=== PATIENT | male | born 1955 | race Caucasian/White ===

== ENCOUNTER 2017-07-19 07:15 | Outpatient (CLI) | payer MEDICARE ==
[~2017-07-19] VITALS: Ht 172.7 cm; Wt 74.1 kg
--- NOTE | ~2017-07-19 | HEMODYNAMI ---
PATIENT:DONTA STEARNS MEDICAL RECORD: [id number] : 53 LOCATION:[facility] ADMISSION DATE: 07/19/17 Generatedon:07/19/201714:04 Patient name: DONTA STEARNS Patient #: [id number] SSN: DO B: 1955 Date of study: 07/19/2017 Page: Of Hemodynamic Procedure Report Patient Data Patient Demographics Procedure consent was obtained First Name: DONTA Gender: Male Last Name: DARYN : 1955 Middle Initial: N Age: 62 year(s) Patient #: [id number] Race: Unknown Additional ID: [id number] Contact details [address]: [address] [place] [address] State: [place] City: [place] Zip code: [address] Past Medical History Allergies Allergen Reaction Date Comments Reported Sulfa drugs 07/19/2017 Admission Admission Data Admission Date: 07/19/2017 Admission Time: 7:15 Weight (lbs.): 163 Weight (kg.): 73.94 Procedure Procedure Types Cath Procedure Peripheral Cath Diagnostic Procedure Cath Peripheral 4-Vessel Subclavian Arteriogram Uni Procedure Description Procedure Date Procedure Date: 07/19/2017 Procedure Start Time: 12:21 Procedure Staff Name Function Lola Stringer RT Activities Aide Lola Stringer RT Monitor Reji Santana RT Scrub Adam Rucker MD Performing Physician Azalia Hills RN Nurse Procedure Data Cath Procedure Fluoroscopy Diagnostic fluoroscopy Total fluoroscopy Time: time: 13.7 min 13.7 min Diagnostic fluoroscopy Total fluoroscopy dose: 266 dose: 266 mGy mGy Contrast Material Contrast Material Type Amount (ml) Isovue 300 200 Entry Location Entry Primary Successful Side Size Upsize Upsize Entry Closure Succes sful Closure Location (Fr) 1 (Fr) 2 (Fr) Remarks Device Remarks Femoral Right 5 Fr artery Femoral Exoseal artery Diagnostic catheters Device Type Used For End Catheter Placement Merit UHF Pigtail VESSEL SIZING 5Fr 65CM catheter Merit Impress Chisholm 5Fr 125CM catheter Procedure Medications Medication Administration Route Dosage Lidocaine 1% added to field 20 Oxygen NC 2 l/min Heparin Flush Bag added to field 3 bags (1000units/500ml NS) Hemodynamics Rest Heart Rate: 73 (bpm) Snapshots Pre Cath Intra NCS Post Cath Vital Signs Time Heart Resp SPO2 NIBP (mmHg) Rhythm Pain Sedation Rate (ipm) (%) Status Level (bpm) 11:55:43 70 15 98 144/87(111) NSR 0 (11) 10(A) , No pain 11:59:55 71 17 99 129/86(114) NSR 0 (11) 10(A) , No pain 12:04:03 74 13 98 134/87(108) NSR 0 (11) 10(A) , No pain 12:08:15 72 18 98 138/87(112) NSR 0 (11) 10(A) , No pain 12:12:27 72 18 99 136/84(120) NSR 0 (11) 10(A) , No pain 12:17:08 79 21 99 140/89(116) NSR 0 (11) 10(A) , No pain 12:22:07 2 99 Measuring NSR 0 (11) 10(A) , No pain 12:22:23 84 2 99 136/93(128) NSR 0 (11) 10(A) , No pain 12:26:29 116 14 98 107/89(95) NSR 0 (11) 10(A) , No pain 12:30:31 77 10 97 126/81(97) NSR 0 (11) 10(A) , No pain 12:34:41 72 15 96 107/79(91) NSR 0 (11) 10(A) , No pain 12:38:46 77 5 97 108/65(78) NSR 0 (11) 10(A) , No pain 12:42:46 73 16 96 125/86(105) NSR 0 (11) 10(A) , No pain 12:46:52 79 18 96 118/84(96) NSR 0 (11) 10(A) , No pain 12:51:00 72 19 95 106/73(83) NSR 0 (11) 10(A) , No pain 12:55:03 73 13 95 110/71(84) NSR 0 (11) 10(A) , No pain 12:59:07 74 12 95 100/73(83) NSR 0 (11) 10(A) , No pain 13:03:09 79 17 96 93/74(82) NSR 0 (11) 10(A) , No pain 13:07:06 73 14 96 97/74(90) NSR 0 (11) 10(A) , No pain 13:11:04 74 14 96 111/79(100) NSR 0 (11) 10(A) , No pain 13:15:04 96 116/92(101) NSR 0 (11) 10(A) , No pain 13:19:59 73 98 176/98(148) NSR 0 (11) 10(A) , No pain 13:24:23 81 99 168/89(134) NSR 0 (11) 10(A) , No pain 13:28:41 114 98 168/95(148) NSR 0 (11) 10(A) , No pain 13:33:03 79 25 99 176/87(136) NSR 0 (11) 10(A) , No pain 13:37:27 67 13 100 175/93(121) NSR 0 (11) 10(A) , No pain 13:41:50 68 20 97 169/97(120) NSR 0 (11) 10(A) , No pain Medications Time Medication Route Dose Verified Delivered Reason Notes Effec tiveness by by 11:56:24 Lidocaine 1% added 20ml Azalia Medina used for to vial Reinier Rucker MD procedure field RN 11:56:48 Oxygen NC 2 Azalia Azalia used for l/min Reinier Hills RN [employer] business intelligence developer 11:57:10 Heparin Flush added 3bags Azalia Medina used for Bag to Reinier Rucker MD procedure (1000units/500ml field RN NS) Procedure Log Time Note 11:37:31 Use device set IR Diagnostic 11:45:14 Time tracking: Regular hours 11:46:16 Plan of Care:Hemodynamics will remain stable., Cardiac rhythm will remain stable., Comfort level will be maintained., Respiratory function will remain adequate., Patient/ family verbilizes understanding of procedure., Procedure tolerated without complication., Recovers from procedure without complications.. 11:47:07 Patient received from Outpatients to IR Alert and oriented. Tansferred to table in Supine position. 11:47:08 Correct patient and procedure confirmed by team. 11:47:11 Signed procedure consent form obtained from patient. 11:47:22 H&P Date Dictated: 07/19/2017 Within 30 days and on chart.. 11:47:24 Pre-procedure instructions explained to patient. 11:47:25 Pre-op teaching completed and patient verbalized understanding. 11:47:29 Family in patients room. 11:47:32 Patient NPO since Midnight. 11:47:46 Patient allergic to Sulfa drugs 11:47:52 Is the patient allergic to Iodine/contrast media? No. 11:47:55 Is patient on blood thinner?Yes 11:47:58 Patient diabetic? No. 11:48:00 - 11:48:01 ----Pre-sedation anethsthesia assessment.---- 11:48:06 Previous problem with sedation/anesthesia? No ? 11:48:08 Snore? Yes 11:48:11 Sleep apnea? No 11:48:13 Deviated septum? No 11:48:16 Opens mouth fully? Yes 11:48:18 Sticks out tongue? Yes 11:48:23 Airway obstruction? Yes copd 11:48:28 Dentures? No ? 11:48:31 - 11:54:37 ECG and BP/O2 sat monitors applied to patient. 11:54:38 Vital chart was started 11:54:38 Baseline sample Acquired. 11:54:39 Full Disclosure recording started 11:54:40 - 11:54:54 IV patent on arrival in right wrist with 0.9% NaCl at KVO. 11:55:02 Right groin area was prepped with chlora-prep and draped in sterile fashion 11:55:04 Alarms reviewed by Khushboo Mena 11:55:05 Sharps counted by scrub and verified by RNaniNNani 11:55:06 - 11:55:19 Ba RÍOS .035 guide wire opened to sterile field. 11:55:20 Terumo 5Fr Waurika Sheath opened to sterile field. 11:55:20 Micropuncture VSI 4FR kit opened to sterile field. 11:55:21 TUBING, CONTRAST INJCTN HI PRES opened to sterile field. 11:55:22 Sterile Angiographic Pack opened to sterile field. 11:55:23 Bag Decanter opened to sterile field. 11:55:24 Acist Manifold opened to sterile field. 11:55:25 Acist Hand Control opened to sterile field. 11:55:26 Acist Syringe opened to sterile field. 11:56:01 Patient Weight : 163 lbs 11:56:24 Lidocaine 1% 20ml vial added to field was administered by Adam Rucker MD; used for procedure; 11:56:48 Oxygen 2 l/min NC was administered by Azalia Hills RN; used for procedure; 11:57:10 Heparin Flush Bag (1000units/500ml NS) 3bags added to field was administered by Adam Rucker MD; used for procedure; 11:57:42 Ba CHADWICK 260 guide wire opened to sterile field. 11:57:44 - 12:05:21 A Supersolid UHF Pigtail VESSEL SIZING 5Fr 65CM catheter was advanced over the wire and used for . 12:05:28 BasixTOUCH Inflation Syringe opened to sterile field. 12:07:47 Pre procedure: right dorsailis pedis pulse 1+ Palpable, but thready & weak; easily obliterated 12:07:54 Pre procedure: left dorsailis pedis pulse 1+ Palpable, but thready & weak; easily obliterated 12:08:01 Pre procedure: right posterior tibial pulse Doppler 12:08:08 Pre procedure: left posterior tibial pulse Doppler 12:08:11 - 12:18:11 Physician arrived 12:20:24 Final Timeout: patient, procedure, and site verified with staff and physician. All members of the team are in agreement. 12:20:24 --------ALL STOP TIME OUT------ 12:20:48 Sedation plan: IV Moderate Sedation Versed, Fentanyl 12:20:56 Physical assessment completed. ASA score P 3 - A patient with severe systemic disease as per Adam Rucker MD. 12:21:02 Procedure started. 12:21:14 Local anesthetic to right femoral artery with Lidocaine 1% by Adam Rucker MD.INITIAL ACCESS ONLY 12:21:18 Arterial access obtained using ultrasound guidance. 12:31:28 A 5 Fr sheath was inserted into the Right Femoral artery 12:41:06 Terumo TORQUE DEVICE PLASTIC .038 opened to sterile field. 12:41:07 Terumo ANGLE 260cm glide wire opened to sterile field. 12:41:07 Terumo 5FR ANGLED 100CM glide catheter opened to sterile field. 12:55:55 Cook RAABE 7FR.90CM guide sheath opened to sterile field. 12:57:54 Cook RAABE 6FR. 90cm guide sheath opened to sterile field. 13:01:13 A Supersolid Impress Chisholm 5Fr 125CM catheter was advanced over the wire and used for . 13:13:25 Inflation number: 1 A Cordis Powerflex Pro 4.0 x 40 x 135cm balloon was prepped and advanced across the Undefined lesion 1 on undefined graft 1, then inflated to 18 JOB for 0:18 (min:sec). 13:18:07 Cordis Hilda 10 x 39 x 135 stent was deployed across Undefined lesion 1 on undefined graft 1 . 13:21:18 [address] Sigifredo 7FR sheath opened to sterile field. 13:31:53 Cordis 7Fr Exoseal opened to sterile field. 13:32:12 Sheath removed intact; hemostasis achieved with Exoseal to the Femoral artery. 13:32:12 A sheath was inserted into the Femoral artery 13:32:16 Procedure ended.(Physican Out) 13:32:31 Fluoroscopy time 13.70 minutes. 13:32:37 Fluoroscopy dose: 266 mGy 13:32:37 Flurop Dose total: 266 13:32:42 Contrast amount:Isovue 300 200ml. 13:32:44 Sharps counted by scrub and verified by R.N. 13:39:06 Procedure and supply charges have been captured, reviewed, submitted an d are correct. 13:43:46 Vital chart was stopped 13:43:50 Full Disclosure recording stopped Intervention Summary Intervention Notes Time ActionType Lesion and Equipment Action# Pressure Duration Attributes Used 13:13:25 Inflate Undefined Cordis 1 18 00:18 balloon lesion 1 on Powerflex undefined Pro 4.0 x graft 1 40 x 135cm balloon 13:18:07 Deploy self Undefined Cordis 1 expanding lesion 1 on Hilda stent undefined 10 x 39 x graft 1 135 stent Device Usage Item Name Manufacture Quantity Catalog Hospital Part Current [facility] l Lot# / Number Charge Number Stock Stock Serial# Code Mr Banana DOC .035 Evergreen Pintics 1 [id number] 026591 429088 5 [id number] guide wire Micropuncture VSI VASCULAR 1 [id number] 770516 123786 5 VSI 4FR kit SOLUTIONS Terumo 5Fr Terumo 1 WME435 834979 724069 220837 40 [place] Sheath TUBING, Merit 1 [id number] 844076 346858 522194 5 CONTRAST Medical INJCTN HI PRES Sterile Cardinal 1 [id number] 517718 502033 5 Angiographic Health Pack Bag Decanter Microtek 1 2002S 871798 83841 188048 5 Medical Inc. Acist Acist 1 07360 493062 592021 015581 5 Manifold Medical Systems Inc Acist Hand Acist 1 99621 022941 258314 062332 5 Control Medical Systems Inc Acist Syringe Acist 1 90032 076839 989531 941301 20 Medical Systems Inc Cook CHADWICK Cook Medical 1 C39519 995552 318783 5 [id number] 260 guide wire Merit UHF Merit 1 [id number] 689434 849242 5 Pigtail Medical VESSEL SIZING 5Fr 65CM catheter BasixTOUCH Merit 1 AS7854 063010 609314 682277 5 Inflation Medical Syringe Terumo TORQUE [place] 1 TD01 796447 913523 147464 5 DEVICE Scientific PLASTIC .038 Terumo 5FR Terumo 1 CG508 526206 33732 211085 4 ANGLED 100CM glide catheter Terumo ANGLE Terumo 1 QP3787 688056 526613 621643 5 260cm glide wire Prolify 1 D17730 911605 437884 5 7FR.90CM guide sheath Prolify 1 W69203 810863 835959 5 6FR. 90cm guide sheath Merit Impress Merit 1 [id number] 371752 612107 664399 5 Chisholm 5Fr Medical 125CM catheter Cordis Cardinal 1 [id number] 109492 796728 781166 5 Powerflex Pro Health 4.0 x 40 x 135cm balloon Cordis Cardinal 1 [id number] 850754 153514 818125 5 [id number] Hilda 10 x Health [address] Sigifredo 1 754424 019682 771603 5 [id number] sheath Cordis 7Fr Cardinal 1 EX700 541510 864114 449727 [id number] [facility] [employer] Signature Audit [place] Stage Time Signature Unsigned Intra-Procedure 07/19/2017 Lola Santana RT 1:43:42 PM RT(R) (R) (CV) 07/19/2017 2:02:21 PM Intra-Procedure 07/19/2017 Lola Stringer 2:04:26 PM RT(R) Signatures Monitor : Lola Stringer RT Signature : Date : Time : [id number] [place] [address]
[~2017-07-19 07:15] MED LIST: BUTALB-APAP-CA1 EACH PO; CARAFATE1 G PO; EFFEXOR XR150 MG PO; EFFEXOR XR75 MG PO; EXCEDRIN CAPLET1 TAB PO; NEXIUM40 MG PO; TOPROL XL50 MG PO; ZOCOR10 MG PO
[2017-07-19 08:52] LABS: BASOPHILS 0.6 % (0-2); EOSINOPHILS 4.5 % (0-7); HEMATOCRIT 37.6 % (42.0-54.0); HEMOGLOBIN 12.7 g/dL (13.5-17.5); IMMATURE GRANULOCYTES 0.1 % (0-5); LYMPHOCYTES 20.3 % (15-50); MCH 32.5 pg (26.0-34.0); MCHC 33.8 g/dL (31.0-37.0); MCV 96.2 fL (80.0-100.0); MEAN PLATELET VOLUME 11.9 fL (7.4-10.4); MONOCYTES 8.5 % (2-11); PLATELET COUNT 227 10x3/uL (130-400); RBC 3.91 10x6/uL (4.20-6.10); RDW 12.8 % (11.5-14.5); WBC 8.7 10x3/uL (4.8-10.8)
[2017-07-19 09:01] LABS: ANION GAP 12.7 mmol/L (8-16); CALCIUM 8.9 mg/dL (8.5-10.1); CARBON DIOXIDE 28.2 mmol/L (21.0-32.0); CREATININE - SERUM 1.1 mg/dL (0.6-1.3); POTASSIUM - SERUM 4.9 mmol/L (3.5-5.1)
[2017-07-19 09:26] LABS: APTT 27.5 SECONDS (22.8-39.4); INR 0.9 (0.85-1.17)
[2017-07-19 11:03] VITALS: BP 132/87; Ht 172.7 cm; Wt 74.1 kg
[2017-07-19] MEDS ORDERED: PLAVIX75 MG PO (11:18)
[2017-07-19] MEDS ORDERED: NORVASC5 MG (11:20)
--- NOTE | 2017-07-19 18:21 | NUR ---
1700 VS TAKEN AND PLACED ON POST-OP SHEET 1715 IV DC WITH CATHER TIP INTACT 1730 RIGHT GRION W/O BLEEDING OR HEMOTOMA PPP AND STRONG
== END 2017-07-19 17:45 | disposition home or self-care (01) ==
LOC: D.OPS 07:15 → D.RAD 08:00 → D.OPS 08:00
PROVIDERS: General Practice
DX: I70.8 Atherosclerosis of other arteries (principal); I65.01 Occlusion and stenosis of right vertebral artery; F17.200 Nicotine dependence, unspecified, uncomplicated